=== PATIENT | male | born 2000 | race Caucasian/White ===

== ENCOUNTER 2019-10-22 13:44 | Outpatient (CLI) | payer BC, SELFPAY ==
--- NOTE | 2019-10-22 | XR_ITS ---
WS: [id number] WRIST RIGHT TECHNIQUE: 3 views of the right wrist CLINICAL INFORMATION: WRIST PAIN RIGHT COMPARISON: None. FINDINGS: Normal radiocarpal joint. Scaphoid is normal in appearance. No evidence of radiocarpal dislocation. D istal radius and ulna are normal in appearance. XR/XR wrist RT min 3V* [id number] IMPRESSION: Normal right wrist.
== END 2019-10-22 13:45 | disposition home or self-care (01) ==
LOC: RADOUTREAD 10-23 11:26
PROVIDERS: Family Provider Nurse Practitioner Family; Visit Provider Physician Assistant
DX: M25.531 Pain in right wrist (principal)

== ENCOUNTER 2020-01-02 11:04 | Outpatient (CLI) | payer BC, SELFPAY ==
--- NOTE | 2020-01-02 | XR_ITS ---
WS: [id number] Left foot, 3 views, 01/02/2020 Clinical Data: LT FOOT PAIN, STEPPED ON NAIL 1 1/2 MONTH AGO Comparison: None. Findings: No fractures or dislocations are seen. No bone destruction or erosion is noted. The joint spaces and soft tissues are normal. No radiopaque foreign body is seen. XR/XR foot LT min 3V* [id number] Impression: Negative left foot.
== END 2020-01-02 11:05 | disposition home or self-care (01) ==
PROVIDERS: Family Provider Nurse Practitioner Family; Visit Provider Nurse Practitioner
DX: Z01.89 Encounter for other specified special examinations (principal)

== ENCOUNTER 2020-01-02 13:57 | Outpatient (CLI) | payer BC, SELFPAY | END 2020-01-02 13:58 | disposition home or self-care (01) | LOC: SPT 13:59 | PROVIDERS: Family Provider Nurse Practitioner Family; Visit Provider Podiatrist Foot & Ankle Surgery | DX: Z46.89 Encounter for fitting and adjustment of other specified devices (principal); M79.672 Pain in left foot | CPT/HCPCS: L4361 ==

== ENCOUNTER → 2020-01-06 08:34 | Outpatient (BNVA) | payer BC, SELFPAY | PROVIDERS: Family Provider Nurse Practitioner Family; Visit Provider Podiatrist Foot & Ankle Surgery | DX: S90.852A Superficial foreign body, left foot, initial encounter (principal); X58.XXXA Exposure to other specified factors, initial encounter | CPT/HCPCS: 73630 ==